=== PATIENT | female | born 1990 | race African-American/Black ===

== ENCOUNTER → 2024-12-18 11:17 | Outpatient (REF) | payer OTHER, SELFPAY ==
[2024-12-18 16:43] LABS: Varicella Zoster IgG (VZV) Positive
== END ==
LOC: OHS 11:17
PROVIDERS: ATTENDING PHYSICIAN Nurse Practitioner Family
DX: Z23 Encounter for immunization (principal)
CPT/HCPCS: 36415; 86480; 86787